=== PATIENT | male | born 1980 | race Two or more races ===

== ENCOUNTER 2018-09-04 21:31 | Emergency (ER) | payer OTHER ==
[~2018-09-04] VITALS: Ht 170.2 cm; Wt 101.2 kg
[2018-09-04 21:33] VITALS: BP 149/85
[2018-09-04] MEDS ORDERED: FLUORESCEIN OPHTHALMIC 1 MG STRIP ONE (21:45)
[2018-09-04] MEDS ORDERED: PROPARACAINE OPHTH 0.5%, 15ML ONE (21:46)
[2018-09-04] MEDS ORDERED: FLUORESCEIN OPHTHALMIC 1 MG STRIP EACHEYE ONE (22:00)
[2018-09-04] MEDS ORDERED: IBUPROFEN 600 MG TABLET PO ONE (22:00)
[2018-09-04] MEDS ORDERED: PROPARACAINE OPHTH 0.5%, 15ML EACHEYE ONE (22:00)
[2018-09-04] MEDS ORDERED: IBUPROFEN 600 MG TABLET ONE (22:48)
== END 2018-09-04 22:58 | disposition home or self-care (01) ==
LOC: ED 22:17
DX: T15.82XA Foreign body in other and multiple parts of external eye, left eye, initial encounter (principal); T15.02XA Foreign body in cornea, left eye, initial encounter; X58.XXXA Exposure to other specified factors, initial encounter; Y93.9 Activity, unspecified; Y92.89 Other specified places as the place of occurrence of the external cause; Y99.8 Other external cause status
CPT/HCPCS: 65205; 99284